=== PATIENT | male | born 1965 ===

== ENCOUNTER 2017-06-16 15:44 | Emergency (ER) | payer OTHER ==
[2017-06-16 15:57] VITALS: BMI 29.9
[2017-06-16 16:07] VITALS: O2SAT 96
[2017-06-16] MEDS ORDERED: Sodium Chloride 0.9% 1,000 ML IV ONE (16:22)
--- NOTE | 2017-06-16 16:22 | C.PDOC ---
History Of Present Illness 51 year old male presents to the ED c/o intermittent right lower abdominal pain associated with dysuria that started this morning. Patient denies fever, chills , nausea, vomit, diarrhea, abdominal pain, hematuria. Time Seen by Provider: 06/16/17 16:19 Chief Complaint (Nursing): Abdominal Pain History Per: Patient History/Exam Limitations: no limitations Onset/Duration Of Symptoms: Hrs Current Symptoms Are (Timing): Still Present Location Of Pain/Discomfort: RLQ Radiation Of Pain To:: Back Quality Of Discomfort: "Pain" Associated Symptoms: denies: Nausea, Vomiting, Diarrhea Exacerbating Factors: None Alleviating Factors: None Recent travel outside of the [place]: No Additional History Per: Patient Past Medical History Reviewed: Historical Data, Nursing Documentation, Vital Signs Vital Signs: Last Vital Signs Temp 98.5 F 06/16/17 18:46 Pulse 64 06/16/17 18:46 Resp 18 06/16/17 18:46 BP 131/81 06/16/17 18:46 Pulse Ox 96 06/16/17 18:46 - Medical History PMH: No Chronic Diseases Surgical History: No Surg Hx Family History: States: Unknown Family Hx - Social History Hx Alcohol Use: No Hx Substance Use: No - Immunization History Hx Tetanus Toxoid Vaccination: No Hx Influenza Vaccination: No Hx Pneumococcal Vaccination: No Review Of Systems Except As Marked, All Systems Reviewed And Found Negative. Gastrointestinal: Positive for: Abdominal Pain Genitourinary: Positive for: Dysuria Physical Exam - Physical Exam Appears: Non-toxic, No Acute Distress Skin: Normal Color, Warm, Dry Head: Atraumatic, Normacephalic Eye(s): bilateral: Normal Inspection Nose: No Discharge Oral Mucosa: Moist Neck: Normal ROM, Supple Chest: Symmetrical Cardiovascular: Rhythm Regular, No Murmur Respiratory: Normal Breath Sounds, No Rales, No Rhonchi, No Wheezing Gastrointestinal/Abdominal: Soft, Tenderness (mild right lower flank ), No Guarding, No Rebound Extremity: Normal ROM, No Tenderness, No Swelling Neurological/Psych: Oriented x3 Gait: Steady ED Course And Treatment - Laboratory Results Result Diagrams: 06/16/17 16:47 06/16/17 16:47 O2 Sat by Pulse Oximetry: 96 (On RA) Pulse Ox Interpretation: Normal Medical Decision Making Medical Decision Making: Impression: abdominal pain, dysuria Plan: * CT abd/pelvis * Labs * IV fluids * UA ct shows 4mm stone, no e/o of infection based on ua. no fever, non specific luekocytosis. pt comfortabe in er, intially did not requst analgesia. pt state feels well for outpt mangemnt. strict return precautions advised. Disposition - Disposition Referrals: Serge Oswald MD [Staff Provider] - [facility] [Outside] [facility] [Outside] [facility] [Outside] Disposition: HOME/ ROUTINE Disposition Time: 18:01 Condition: STABLE Additional Instructions: please follow up with your doctor/clinic and specialist. return to er with any worsneing symptoms, fever, pain, or any concern. Prescriptions: Ibuprofen [Motrin Tab] 600 mg PO Q6 PRN #20 tab PRN Reason: Pain, Mild (1-3) oxyCODONE/Acetaminophen [Percocet 5/325 mg Tab] 1 ea PO Q6 PRN #10 tab PRN Reason: Pain, Severe (8-10) Tamsulosin [Flomax] 0.4 mg PO DAILY #10 cap Instructions: Kidney Stones (DC) Forms: This Week In (Angolan) - Clinical Impression Clinical Impression: Kidney stone - Scribe Statement The provider has reviewed the documentation as recorded by the Scribe Gadiel Rangel All medical record entries made by the Scribe were at my direction and personally dictated by me. I have reviewed the chart and agree that the record accurately reflects my personal performance of the history, physical exam, medical decision making, and the department course for this patient. I have also personally directed, reviewed, and agree with the discharge instructions and disposition.
[2017-06-16] MEDS ORDERED: Sodium Chloride 0.9% 1,000 ML ONE (16:54)
[2017-06-16 16:55] LABS: BASO # 0.1 K/uL (0.0-0.2); BASO % 0.5 % (0.0-2.0); EOS % 0.2 % (0.0-4.0); HEMOGLOBIN 15.6 g/dL (12.0-18.0); LYMPH # 0.7 K/uL (1.0-4.3); LYMPH % 5.2 % (20.0-40.0); MEAN CELL VOLUME 90.3 fL (80.0-94.0); MEAN CORPUSCULAR HGB CONC 35.4 g/dL (33.0-37.0); MEAN PLATELET VOLUME 9.4 fL (7.2-11.7); MONO # 0.4 K/uL (0.0-0.8); MONO % 3.3 % (0.0-10.0); NEUT # 12.2 K/uL (1.8-7.0); NEUT % 90.8 % (50.0-75.0); NRBC % 0.1 % (0.0-2.0); PLATELET COUNT 212 K/uL (130-400); RBC 4.88 Mil/uL (4.40-5.90); RED CELL DISTRIBUTION WIDTH 12.5 % (11.5-14.5); WHITE BLOOD COUNT 13.5 K/uL (4.8-10.8)
[2017-06-16 17:08] LABS: RENAL EPITHELIAL < 1 /hpf (0-3); SQUAMOUS EPITHIAL 1 /hpf (0-5); URINE AMORPHOUS SEDIMENT RARE /ul (<OCC); URINE BACTERIA RARE (<OCC); URINE BILIRUBIN NEGATIVE (NEGATIVE); URINE BLOOD 3+ (NEGATIVE); URINE CLARITY Hazy (Clear); URINE COLOR Yellow (YELLOW); URINE GLUCOSE (UA) NORMAL (Normal); URINE LEUKOCYTE ESTERASE NEG Leu/uL (Negative); URINE PROTEIN 1+ mg/dL (NEGATIVE); URINE UROBILINOGEN NORMAL mg/dL (0.2-1.0)
[2017-06-16 17:09] LABS: ALBUMIN 4.4 g/dL (3.5-5.0); BLOOD UREA NITROGEN 16 mg/dL (9-20); CALCIUM 9.1 mg/dl (8.6-10.4); GFR AFRICAN-AMERICAN > 60; GFR NON-AFRICAN AMERICAN > 60; INR 1.1; PROTHROMBIN TIME 11.8 SECONDS (9.7-12.2)
[2017-06-16 17:10] LABS: ALB/GLOB RATIO 1.3 (1.0-2.1); ALT/SGPT 78 U/L (21-72); AST/SGOT 35 U/L (17-59); LIPASE 56 U/L (23-300)
--- NOTE | 2017-06-16 17:53 | CT ---
PROCEDURE: CT Abdomen and Pelvis without intravenous contrast HISTORY: right flank pain COMPARISON: None. TECHNIQUE: Without contrast.. Contrast Dose: 0 Radiation dose: Total exam DLP = Total exam DLP = 748.28 mGy-cm. This CT exam was performed using one or more of the following dose reduction techniques: Automated exposure control, adjustment of the mA and/or kV according to patient size, and/or use of iterative reconstruction technique. FINDINGS: LOWER THORAX: Unremarkable. LIVER: Normal size and contour. Diffusely diminished attenuation consistent with fatty infiltration. No focal mass. No biliary ductal dilatation. GALLBLADDER AND BILE DUCTS: Cholelithiasis. No mural thickening or pericholecystic fluid. PANCREAS: Unremarkable. No gross lesion or ductal dilatation. SPLEEN: Unremarkable. ADRENALS: Unremarkable. No mass. KIDNEYS AND URETERS: Right hydroureteronephrosis. Obstructing 4 mm calculus in distal right ureter just proximal to the ureterovesical junction. No left hydronephrosis. No renal mass or calculus. VASCULATURE: Unremarkable. No aortic aneurysm. BOWEL: No bowel obstruction. Evidence of prior ileal ileal anastomosis in right lower quadrant. APPENDIX: Unremarkable. Normal appendix. PERITONEUM: Unremarkable. No free fluid. No free air. LYMPH NODES: Unremarkable. No enlarged lymph nodes. BLADDER: Unremarkable. REPRODUCTIVE: Unremarkable prostate BONES: No acute fracture. OTHER FINDINGS: None. IMPRESSION: Obstructing 4 mm calculus at right ureterovesical junction. Cholelithiasis without evidence of cholecystitis. Fatty liver.
[2017-06-16 17:59] VITALS: TEMP 98.5
[2017-06-16 18:04] LABS: LYMPHOCYTE 5 % (20-40); MONOCYTE 6 % (0-10); NEUTROPHIL 89 % (50-75); PLATELET ESTIMATE NORMAL (NORMAL); TOTAL CELLS COUNTED 100
[2017-06-16 18:47] VITALS: BP 131/81; PULSE 64; RESP 18
== END 2017-06-16 19:01 | disposition home or self-care (01) ==
LOC: C.ER 15:44
DX: N20.0 Calculus of kidney (principal)
CPT/HCPCS: 74176; 80053; 81001; 83690; 85025; 85610; 85730; 96361; 96374; 99284; J1885; J7040